=== PATIENT | male | born 1980 | race Caucasian/White ===

== ENCOUNTER 2016-12-01 21:12 | Emergency (ER) | payer SELFPAY ==
[2016-12-01] MEDS ORDERED: NACL 0.9% 1000 ML 1,000 ML IV ONE ×2 (21:16→22:32)
[2016-12-01 21:45] LABS: Urine Drugs of Abuse Note Disclamer
--- NOTE | 2016-12-01 21:51 | Emergency Department Report ---
HPI - General Chief Complaint: Overdose Time Seen by Provider: 12/01/16 21:15 - HPI HPI: This is a 35-year-old male presents to the emergency department by EMS from a motel that he is currently sharing with his with the complaint of an unresponsive episode. The patient had drank some alcohol and took a few unknown pills and became unresponsive. The called EMS. He got a large dose of Narcan in route which did not work immediately but then appeared to start working just as they got to the emergency department. The call was initially for someone who was unresponsive with shallow breathing with the potential need for intubation but the patient is more awake and alert as he rolls into bed #20. Shortly after the patient got here he became even more responsive and admitted to taking multiple Percocet pills on top of some alcohol. He did not have the intent to harm himself but instead was trying to get high. ED Past Medical Hx - Past Medical History Previous Medical History?: Yes Hx Hypertension: Yes - Surgical History Past Surgical History?: No - Social History Smoking Status: Current Every Day Smoker Substance Use Type: Alcohol, Marijuana ED Review of Systems ROS: Stated complaint: UNRESPONSIVE Other details as noted in HPI Comment: All other systems reviewed and negative (this review of systems is based on once the patient has become awake, alert and lucid) Constitutional: denies: chills, fever Eyes: denies: eye pain, eye discharge, vision change ENT: denies: ear pain, throat pain Respiratory: denies: cough, shortness of breath, wheezing Cardiovascular: denies: chest pain, palpitations Gastrointestinal: denies: abdominal pain, nausea, diarrhea Genitourinary: denies: urgency, dysuria Musculoskeletal: denies: back pain, joint swelling, arthralgia Skin: denies: rash, lesions Neurological: other (transient altered mental status). denies: headache, weakness Physical Exam - Physical Exam Vital Signs: Vital Signs 12/01/16 21:26 Temperature 98.8 F Pulse Rate 117 H Respiratory 20 Rate Blood Pressure 140/97 O2 Sat by Pulse 100 Oximetry Physical Exam: GENERAL: Patient appears intoxicated versus confused. HEENT: Normocephalic. Atraumatic. Extraocular motions are intact. Patient has moist mucous membranes. Pupils equal reactive to light bilaterally but they are constricted. NECK: Supple. Trachea is midline. CHEST/LUNGS: Clear to auscultation. There is no respiratory distress noted. HEART/CARDIOVASCULAR: Regular. There is mild tachycardia. There is no gallop rub or murmur. ABDOMEN: Abdomen is soft, nontender. Patient has normal bowel sounds. There is no abdominal distention. SKIN: Skin is warm and dry. NEURO: The patient is awake, alert, and oriented. The patient is cooperative. Patient has some slight slurred speech. He is slow to answer questions. MUSCULOSKELETAL: There is no tenderness or deformity. There is no limitation range of motion. There is no evidence of acute injury. Radial pulse was 2 over 4 bilaterally. Cap refill less than 2 seconds. ED Course Vital Signs 12/01/16 21:26 Temperature 98.8 F Pulse Rate 117 H Respiratory 20 Rate Blood Pressure 140/97 O2 Sat by Pulse 100 Oximetry - Reevaluation(s) Reevaluation #1: Shortly after the patient came into the emergency department appearing confused versus intoxicated, the patient woke up and became much more lucid. This may have been a response to the Narcan. At this point the patient admitted to taking a few Percocet, on top of his alcohol consumption. He also admits that they were pills that he was told was Percocet and was given by a "friend." It was not a medication prescribed to him from a physician. However the patient was reevaluated at this point and appears much more stable. 12/02/16 00:58 ED Medical Decision Making - Lab Data Result diagrams: 12/01/16 22:01 12/01/16 22:01 - Medical Decision Making 35-year-old male presents to the emergency department with a unresponsive episode after some type of substance abuse. He received Narcan in route and this eventually appeared to make a difference as he was no longer unresponsive by the time he got to the emergency department. At first he did have some slurred speech, slow response time and appeared confused versus intoxicated. However about 20 minutes into his ED stay the patient was awake, alert, completely lucid. At this point he was asking for discharge home. However secondary to his history of opiate abuse and the fact that he received Narcan, the patient was told that he was not allowed to leave the hospital for 2 hours. The patient agreed to this plan. An IV was placed and he was given IV fluid resuscitation. Labs were drawn. Since the patient became more lucid, we did not do a stat CT of the head. Patient's labs show hypokalemia with a potassium of 3 and a lactic acidosis of 7.7. The patient did allow us to give him 2 L of IV fluid resuscitation. Once he got to be 2 hours after presentation, the patient is requesting to leave yet again. I wanted to recheck his lactic acid level, recheck his potassium, and still potentially get a CT of the head. However the patient refused. He was given referrals for primary care but did sign out AGAINST MEDICAL ADVICE. - Differential Diagnosis substance abuse, TIA, hypoglycemia, hypokalemia Critical Care Time: No Critical care attestation.: If time is entered above; I have spent that time in minutes in the direct care of this critically ill patient, excluding procedure time. ED Disposition Clinical Impression: Substance abuse, Lactic acidosis, Unresponsive episode, Hypokalemia Disposition: LEFT AGAINST MEDICAL ADVICE Is pt being admited?: No Condition: Stable Instructions: Hypokalemia (ED), Polysubstance Abuse (ED) Referrals: PRIMARY CARE, [Primary Care Provider] - 3-5 Days [facility] [Outside] - 3-5 Days [facility] [Outside] - 3-5 Days [facility] [Outside] - 3-5 Days Forms: AMA Form Time of Disposition: 22:47
[2016-12-01 22:02] LABS: Bacteria,Urine 1+ /HPF (Negative); Bilirubin,Urine NEG (Negative); Blood,Urine NEG (Negative); Ketones,Urine NEG (Negative); Leukocyte Esterase,Urine NEG (Negative); Mucus,Urine FEW /HPF; Nitrite,Urine NEG (Negative); Protein,Urine <15 mg/dL mg/dL (Negative); RBC,Urine < 1.0 /HPF (0.0-6.0); Urobilinogen,Urine < 2.0 mg/dL (<2.0); WBC,Urine < 1.0 /HPF (0.0-6.0)
[2016-12-01 22:25] LABS: Basophils % (Auto) 0.3 % (0.0-1.8); Hemoglobin 15.8 gm/dl (11.8-15.2); Mean Corpuscular HGB Conc 32 % (32-34); Mean Corpuscular Hemoglobin 30 pg (28-32); Mean Corpuscular Volume 96 fl (84-94); Platelet Count 193 K/mm3 (140-440); Red Blood Count 5.21 M/mm3 (3.65-5.03); Red Cell Distribution Width 15.4 % (13.2-15.2); White Blood Count 7.5 K/mm3 (4.5-11.0)
[2016-12-01 22:34] LABS: Alanine Aminotransferase 67 units/L (7-56); Albumin 4.7 g/dL (3.9-5); Albumin/Globulin Ratio 1.5 %; Alkaline Phosphatase 136 units/L (35-129); Anion Gap 29 mmol/L; BUN/Creatinine Ratio 17.77; Blood Urea Nitrogen 16 mg/dL (9-20); Calcium 9.1 mg/dL (8.4-10.2); Carbon Dioxide 20 mmol/L (22-30); Chloride 92.5 mmol/L (98-107); Creatine Kinase 188 units/L (55-170); Glucose 145 mg/dL (75-100); Sodium 138 mmol/L (137-145); Total Protein 7.8 g/dL (6.3-8.2)
[2016-12-01] MEDS ORDERED: K-DUR PO ONE (22:38)
[2016-12-01 23:44] VITALS: BP 116/74
== END 2016-12-01 23:30 | disposition left against medical advice (07) ==
LOC: ED 21:12
DX: E87.2 Acidosis (principal); E87.6 Hypokalemia; F12.10 Cannabis abuse, uncomplicated; I10 Essential (primary) hypertension; F17.200 Nicotine dependence, unspecified, uncomplicated
CPT/HCPCS: 36415; 80053; 80307; 81001; 82140; 82550; 84443; 84484; 85025; 93005; 93010; 96360; 96361; 99284; G0480; J7030; 80320

== ENCOUNTER 2016-12-06 14:18 | Emergency (ER) | payer SELFPAY ==
[2016-12-06 14:59] VITALS: BP 144/94
[2016-12-06 16:37] LABS: Basophils % (Auto) 0.2 % (0.0-1.8); Hematocrit 41.8 % (35.5-45.6); Hemoglobin 14.3 gm/dl (11.8-15.2); Mean Corpuscular HGB Conc 34 % (32-34); Mean Corpuscular Hemoglobin 31 pg (28-32); Mean Corpuscular Volume 89 fl (84-94); Platelet Count 286 K/mm3 (140-440); Red Blood Count 4.67 M/mm3 (3.65-5.03); Red Cell Distribution Width 14.4 % (13.2-15.2); White Blood Count 9.9 K/mm3 (4.5-11.0)
--- NOTE | 2016-12-06 16:41 | Emergency Department Report ---
Entered by DANIEL OSEI, acting as scribe for ALEJANDRINA GRODON PA. Chief Complaint: Chest Pain Stated Complaint: CHEST PAIN, BIANCA Time Seen by Provider: 12/06/16 15:46 - HPI History of Present Illness: 35 y/o male with PMHx of back pain and drug abuse, presents to the ED c/o BIANCA and chest pain of unknown onset. Associated symptoms of SOB (occasional), fatigue, nausea, vomiting, fever of 105 degrees intermittently, and weakness. Noted the patient was seen here 5 days ago for AMS (unresponsive) after taking what he thought was a pain pill. Patient was treated here but signed out AMA. Patient took OTC dante-seltzer [employer]. No other complaints. - ROS Review of Systems: CONSTITUTIONAL: positive for fever, fatigue CARDIAC: positive for chest pain RESP: positive for SOB, BIANCA ABD: positive for nausea and vomiting NEURO: positive for generalized weakness. All other systems reviewed and negative - Exam Vital Signs: Vital Signs 12/06/16 14:54 Temperature 98.2 F Pulse Rate 88 Respiratory 20 Rate Blood Pressure 144/94 O2 Sat by Pulse 100 Oximetry Physical Exam: Constitutional: Non toxic appearing, NAD. Cardiovascular: Normal rate and rhythm with normal S1/S2 sounds. Respiratory: No respiratory distress. Lung sounds clear to auscultation bilaterally. Abdomen: Abdomen is non-distended, soft with no tenderness to palpation in all quadrants. MSE screening note: Focused history and physical exam performed. Due to findings the following was ordered: ED Medical Decision Making - Lab Data Result diagrams: 12/06/16 16:20 - Medical Decision Making Alert and oriented x3. Labs ordered, chest x-ray ordered No acute distress, patient is stable. Patient to be seen by ED physician ED Disposition for MSE Condition: Stable This documentation as recorded by the scribe,DANIEL OSEI,accurately reflects the service I personally performed and the decisions made by HEIDI gasca OYINLOLA A, PA.
[2016-12-06 16:50] LABS: BUN/Creatinine Ratio 17.14; Blood Urea Nitrogen 12 mg/dL (9-20); Calcium 9.5 mg/dL (8.4-10.2); Carbon Dioxide 27 mmol/L (22-30); Chloride 101.4 mmol/L (98-107); Glucose 117 mg/dL (75-100); Potassium 5.2 mmol/L (3.6-5.0); Sodium 141 mmol/L (137-145)
[2016-12-06 16:53] LABS: Anion Gap 18 mmol/L
--- NOTE | 2016-12-07 07:27 | XRay Report ---
ROUTINE CHEST, TWO VIEWS: HISTORY: Shortness of breath. No comparison. The interstitium is slightly prominent in both lungs. There is no evidence for consolidation, pleural effusion or pneumothorax. Heart and mediastinal structures are normal. The thoracic cage is intact. IMPRESSION: Slightly prominent interstitium. This could be related to reactive airway disease or bronchiolitis. No focal infiltrate or pleural effusion. Please correlate with the clinical presentation of the patient.
--- NOTE | 2016-12-12 00:49 | ED Elopement Review ---
ED Pt Elopement review - Results review Lab results: Laboratory Tests 12/06/16 12/06/16 16:20 16:20 WBC 9.9 RBC 4.67 Hgb 14.3 Hct 41.8 MCV 89 MCH 31 MCHC 34 RDW 14.4 Plt Count 286 Lymph % (Auto) 18.7 [place] % (Auto) 9.8 H Eos % (Auto) 1.0 Baso % (Auto) 0.2 Lymph # 1.8 [place] # 1.0 H Eos # 0.1 Baso # 0.0 Seg Neutrophils % 70.3 H Seg Neutrophils # 6.9 Sodium 141 Potassium 5.2 H D Chloride 101.4 Carbon Dioxide 27 D Anion Gap 18 BUN 12 Creatinine 0.7 L Estimated GFR > 60 BUN/Creatinine Ratio 17.14 Glucose 117 H Calcium 9.5 Troponin T < 0.010 - Call Back decision Pt Call Back Decision: Pt to F/U with PMD
== END 2016-12-06 22:00 | disposition left against medical advice (07) ==
LOC: ED 14:18
DX: R07.9 Chest pain, unspecified (principal); Z53.21 Procedure and treatment not carried out due to patient leaving prior to being seen by health care provider
CPT/HCPCS: 36415; 71020; 80048; 84484; 85025; 93005; 93010